=== PATIENT | male | born 1960 | race Caucasian/White ===

== ENCOUNTER 2019-01-21 11:04 | Inpatient (IN) | payer OTHER ==
--- NOTE | 2019-01-21 11:28 | PDOC ---
Attending Attestation - Resident Resident Name: Rosalia Vogt - ED Attending Attestation I have performed the following: I have examined & evaluated the patient, The case was reviewed & discussed with the resident, I agree w/resident's findings & plan, Exceptions are as noted - HPI HPI: 01/21/19 11:33 58 yo M presenting with a complaint of chest pain which began yesterday morning while doing nothing in particular Described as pressure, located in the mid axillary line and radiates to the front of the chest also on the left chest No fevers or chills Pt has had these symptoms in the past but they self resolved, he had attributed this to gas pain He became concerned because his chest pain has not resolved No recent travel No ill contacts No cough No chest wall trauma 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 ENT: Ears normal, nares patent, oropharynx clear without exudates. Moist mucous membranes. NECK: Normal range of motion, supple LUNGS: Breath sounds equal, clear to auscultation bilaterally. No wheezes, and no crackles. HEART:Regular rate and rhythm, normal S1 and S2 without murmur, rub or gallop. ABDOMEN: Soft, nontender, normoactive bowel sounds. EXTREMITIES: Normal range of motion, no edema. NEUROLOGICAL: Cranial nerves II through XII grossly intact. Normal speech. No focal neurological deficits. SKIN: Warm, Dry, normal turgor, no rashes or lesions noted. - Medical Decision Making 01/21/19 12:25 Differential includes cardiac ischemia, pe, asthma exacerbation, pneumonia, pneumothorax, pleural effusion, costochondritis, pericarditis, GERD. EKG - Twelve-lead EKG was performed and reviewed by me. There is normal sinus rhythm with a normal rate. The axis is normal. The intervals are normal. There are no ST or T wave abnormalities. Impression: Normal twelve-lead EKG 01/22/19 13:15 Laboratory Tests 01/21/19 01/21/19 12:05 12:05 WBC 7.2 Hgb 14.2 Hct 40.6 Plt Count 210 BUN 24 H Creatinine 0.9 Creatine Kinase 115 Troponin I < 0.02 01/22/19 13:15 Pt tearful, very concerned about chest pain Will place on observation Call placed to Dr Damon Heart Score/ECG Review - History History: Moderately suspicious - Electrocardiogram EKG: Normal - Age Age: 45-65 - Risk Factors Risk Factors Heart Score: Yes Hx Hypercholesterolemia, Yes Smoking History Based on the list above the patient has:: 1-2 risk factors - Troponin Troponin: </= normal limit - Score Heart Score - Total: 3
[2019-01-21 11:31] VITALS: BMI 23.3
--- NOTE | 2019-01-21 11:46 | PDOC ---
History of Present Illness - General Chief Complaint: Chest Pain Stated Complaint: CHEST PAIN, MIGRAINE Time Seen by Provider: 01/21/19 11:17 History Source: Patient Exam Limitations: No Limitations - History of Present Illness Initial Comments: 01/21/19 11:40 Patient is a 58 y/o male with a history of HLD who presents for chest pain. The pain starts in his left axilla and comes around down the front. He describes it as a pressure that is constant. The pain began last night, he went to sleep and the pain did not resolve. He has not been taking his medication for the HLD. He has a 40 pack year history and quit a year and a half ago. he used to drink 12 beers a day but also quit a year and a half ago. He has had chest pain in the past that was more substernal, but he was always told it was gas. Patient denies fevers, chills, nausea, vomiting, diaphoresis or shortness of breath. Past History - Past Medical History Allergies/Adverse Reactions: Allergies Allergy/AdvReac Type Severity Reaction Status Date / Time No Allergy Information Allergy Verified 01/21/19 12:21 Available Home Medications: Ambulatory Orders Aspirin [ASA -] 325 mg PO DAILY 01/21/19 Atorvastatin Ca [Lipitor] 20 mg PO DAILY 01/21/19 COPD: No - Suicide/Smoking/Psychosocial Hx Smoking History: Unknown if ever smoked Have you smoked in the past 12 months: No Information on smoking cessation initiated: No Hx Alcohol Use: No Drug/Substance Use Hx: No Review of Systems - Review of Systems Constitutional: No: Chills, Fever HEENTM: No: Eye Pain Respiratory: No: Cough, Shortness of Breath Cardiac (ROS): Yes: Chest Pain. No: Edema, Irregular Heart Rate ABD/GI: No: Abdominal Distended, Diarrhea, Nausea, Vomiting : No: Dysuria, Frequency Musculoskeletal: No: Gout Neurological: No: Numbness, Tingling *Physical Exam - Vital Signs Last Vital Signs Temp Pulse Resp BP Pulse Ox 97.5 F L 79 16 135/78 100 01/21/19 11:04 01/21/19 11:04 01/21/19 11:04 01/21/19 11:04 01/21/19 11:04 - Physical Exam Comments: 01/21/19 11:46 GENERAL: A&O x3, no acute distress EYES: EOMI HEART: RRR, no murmurs, rubs, or gallops LUNGS: CTAL B/L ABDOMEN: soft, non distended, non tender EXTREMITIES: no pitting edema SKIN: no ulcers or rashes noted ED Treatment Course - LABORATORY CBC & Chemistry Diagram: 01/21/19 12:05 01/21/19 12:05 Medical Decision Making - Medical Decision Making 01/21/19 11:47 EKG: no st elevations or changes, QTC 406 f/u labs, f/u CXR 01/21/19 15:08 Labs WNL, pain continuing, very anxious repeat trop @ 4 admitted to hospitalist team for tele obs *DC/Admit/Observation/Transfer Diagnosis at time of Disposition: Chest pain Qualifiers: Chest pain type: other chest pain Qualified Code(s): R07.89 - Other chest pain - Discharge Dispostion Disposition: HOME Condition at time of disposition: Improved Decision to Admit order: Yes - Referrals - Patient Instructions - Post Discharge Activity
[2019-01-21] MEDS ORDERED: ASPIRIN 81 MG CHEWABLE TABLETS PO ONE (11:53)
[2019-01-21 12:16] LABS: BASO % 0.5 % (0-2.0); EOS % 0.1 % (0-4.5); HEMATOCRIT 40.6 % (35.4-49); HEMOGLOBIN 14.2 GM/dL (11.7-16.9); LYMPH % 25.1 % (8-40); MCH 32.1 pg (25.7-33.7); MCHC 34.9 g/dl (32.0-35.9); MEAN CELL VOLUME 91.9 fl (80-96); MEAN PLT VOLUME 8.9 fl (7.5-11.1); MONO % 8.5 % (3.8-10.2); NEUT % 65.8 % (42.8-82.8); PLATELET COUNT 210 K/MM3 (134-434); RBC 4.41 M/mm3 (4.00-5.60); RDW 12.6 % (11.9-15.9); WHITE BLOOD COUNT 7.2 K/mm3 (4.0-10.0)
[2019-01-21 12:32] LABS: INR 0.96 (0.83-1.09); PROTHROMBIN TIME (PATIENT) 11.3 SEC (9.7-13.0)
[2019-01-21 12:46] LABS: ALBUMIN 4.3 g/dl (3.4-5.0); ALK PHOS 59 U/L (45-117); ANION GAP 9 MMOL/L (8-16); BILIRUBIN,TOTAL 0.2 mg/dL (0.2-1); BLOOD UREA NITROGEN 24 mg/dL (7-18); CALCIUM 8.7 mg/dL (8.5-10.1); CHLORIDE 106 mmol/L (98-107); CO2 24 mmol/L (21-32); CREATININE 0.9 mg/dL (0.55-1.3); GLUCOSE,RANDOM 98 mg/dL (74-106); MAGNESIUM 2.2 mg/dL (1.8-2.4); N-TERMINAL BNP 29.4 pg/ml (5-125); POTASSIUM 4.1 mmol/L (3.5-5.1); SGOT/AST 21 U/L (15-37); SGPT/ALT 33 U/L (13-61); SODIUM 138 mmol/L (136-145); TOT PROT 7.8 g/dl (6.4-8.2)
--- NOTE | 2019-01-21 19:55 | HP ---
Admitting History and Physical - Primary Care Physician PCP: Wilfrido Damon - Admission History of Present Illness: 58 y/o male with a history of HLD who presents for chest pain. The pain starts in his left axilla and comes around down the front. He describes it as a pressure that is constant. The pain began last night, he went to sleep and the pain did not resolve. He has not been taking his medication for the HLD. He has a 40 pack year history and quit a year and a half ago. he used to drink 12 beers a day but also quit a year and a half ago. He has had chest pain in the past that was more substernal, but he was always told it was gas. Patient denies fevers, chills, nausea, vomiting, diaphoresis or shortness of breath. - Smoking History Smoking history: Unknown if ever smoked Have you smoked in the past 12 months: No - Alcohol/Substance Use Hx Alcohol Use: No Home Medications - Allergies Allergies/Adverse Reactions: Allergies Allergy/AdvReac Type Severity Reaction Status Date / Time No Allergy Information Allergy Verified 01/21/19 12:21 Available - Home Medications Home Medications: Ambulatory Orders Aspirin [ASA -] 325 mg PO DAILY 01/21/19 Atorvastatin Ca [Lipitor] 20 mg PO DAILY 01/21/19 Physical Examination Vital Signs: Vital Signs Temperature 97.5 F L 01/21/19 11:04 Pulse Rate 74 01/21/19 19:16 Respiratory Rate 17 01/21/19 19:16 Blood Pressure 124/79 01/21/19 19:16 O2 Sat by Pulse Oximetry (%) 98 01/21/19 19:16 Constitutional: Yes: No Distress HENT: Yes: Atraumatic Neck: Yes: Supple Cardiovascular: Yes: Regular Rate and Rhythm Respiratory: Yes: CTA Bilaterally Gastrointestinal: Yes: Normal Bowel Sounds Extremities: Yes: WNL Neurological: Yes: Alert, Oriented Labs: CBC, BMP 01/21/19 12:05 01/21/19 12:05 Problem List - Problems (1) Chest pain Assessment/Plan: seems atypical prn motrin fu cardiac profile cardiology consult Code(s): R07.9 - CHEST PAIN, UNSPECIFIED Qualifiers: Chest pain type: other chest pain Qualified Code(s): R07.89 - Other chest pain; R07.8 - Other chest pain Assessment/Plan Laboratory Tests 01/21/19 01/21/19 01/21/19 12:05 12:05 12:05 WBC 7.2 RBC 4.41 Hgb 14.2 Hct 40.6 MCV 91.9 MCH 32.1 MCHC 34.9 RDW 12.6 Plt Count 210 MPV 8.9 Absolute Neuts (auto) 4.7 Neutrophils % 65.8 Lymphocytes % 25.1 Monocytes % 8.5 Eosinophils % 0.1 Basophils % 0.5 Nucleated RBC % 0 PT with INR 11.30 INR 0.96 Sodium 138 Potassium 4.1 Chloride 106 Carbon Dioxide 24 Anion Gap 9 BUN 24 H Creatinine 0.9 Creat Clearance w eGFR 86.67 Random Glucose 98 Calcium 8.7 Magnesium 2.2 Total Bilirubin 0.2 AST 21 ALT 33 Alkaline Phosphatase 59 Creatine Kinase 115 Troponin I < 0.02 B-Natriuretic Peptide 29.4 Total Protein 7.8 Albumin 4.3 01/21/19 16:00 WBC RBC Hgb Hct MCV MCH MCHC RDW Plt Count MPV Absolute Neuts (auto) Neutrophils % Lymphocytes % Monocytes % Eosinophils % Basophils % Nucleated RBC % PT with INR INR Sodium Potassium Chloride Carbon Dioxide Anion Gap BUN Creatinine Creat Clearance w eGFR Random Glucose Calcium Magnesium Total Bilirubin AST ALT Alkaline Phosphatase Creatine Kinase Troponin I < 0.02 B-Natriuretic Peptide Total Protein Albumin Active Medications Generic Name Dose Route Start Last Admin Trade Name Freq PRN Reason Stop Dose Admin Aspirin 325 mg 01/22/19 10:00 Asa - PO DAILY [facility] Atorvastatin Calcium 20 mg 01/22/19 10:00 Lipitor - PO DAILY [facility] Heparin Sodium (Porcine) 5,000 unit 01/21/19 22:00 Heparin - SQ BID [facility]
[2019-01-21] MEDS ORDERED: HEPARIN NA (PORCINE) 5,000 UNITS/ML 1ML VIAL ONE (21:42)
[2019-01-21] MEDS: HEPARIN NA (PORCINE) 5,000 UNITS/ML 1ML VIAL SQ SCH (21:51)
[2019-01-22 08:31] VITALS: PULSE 68
[2019-01-22] MEDS: HEPARIN NA (PORCINE) 5,000 UNITS/ML 1ML VIAL SQ SCH (09:32)
[2019-01-22] MEDS ORDERED: ASPIRIN 325 MG TABLET PO SCH (10:00)
--- NOTE | 2019-01-22 10:35 | CON.CARD ---
Consult Consult Specialty:: Cardiology Referred by:: Dr. Damon Reason for Consultation:: Cardiac evaluation - History of Present Illness Chief Complaint: Chest pain History of Present Illness: Patient is a 58 year old male with underlying history of hypercholesterolemia ( had not taken his medication for several weeks) who presents with pain in the left axilla and then to the mid to left sternal area described as pressure. He denies shortness of breath or palpitations. He denies paroxysmal nocturnal dyspnea or orthopnea. He denies fever or chills. He denies headache or lightheadedness. He denies nausea, vomiting, diarrhea or abdominal pain. He denies any syncope in the past. He denies cough or expectorations. - History Source History Provided By: Patient, Medical Record Limitations to Obtaining History: No Limitations - Past Medical History Cardio/Vascular: Yes: Hyperlipdemia - Past Surgical History Past Surgical History: Yes: Colostomy (reversal of colostomy) - Alcohol/Substance Use Hx Alcohol Use: Yes (stopped) History of Substance Use: reports: None - Smoking History Smoking history: Former smoker Have you smoked in the past 12 months: No Home Medications - Allergies Allergies/Adverse Reactions: Allergies Allergy/AdvReac Type Severity Reaction Status Date / Time No Allergy Information Allergy Verified 01/21/19 12:21 Available - Home Medications Home Medications: Ambulatory Orders Aspirin [ASA -] 325 mg PO DAILY 01/21/19 Atorvastatin Ca [Lipitor] 20 mg PO DAILY 01/21/19 Family Disease History - Family Disease History Family Disease History: Heart Disease: Mother (SD ()), Sister (SD) Review of Systems - Review of Systems Constitutional: denies: Chills, Fever Cardiovascular: reports: Chest Pain. denies: Palpitations, Shortness of Breath Respiratory: denies: Cough, Hemoptysis, Orthopnea, PND, SOB, SOB on Exertion Gastrointestinal: denies: Abdominal Pain, Constipation, Diarrhea, Melena, Nausea , Rectal Bleeding Genitourinary: denies: Dysuria, Hematuria Musculoskeletal: denies: Joint Pain Neurological: denies: Dizziness, Headache, Seizure, Syncope Vital Signs: Vital Signs Temperature 98.3 F 01/22/19 07:20 Pulse Rate 68 01/22/19 07:20 Respiratory Rate 18 01/22/19 07:20 Blood Pressure 115/84 01/22/19 07:20 O2 Sat by Pulse Oximetry (%) 98 01/22/19 07:20 Eyes: Yes: Conjunctiva Clear, PERRL HENT: Yes: Atraumatic Neck: Yes: Supple Respiratory: Yes: CTA Bilaterally Gastrointestinal: Yes: Normal Bowel Sounds, Soft. No: Tenderness Cardiovascular: Yes: Regular Rate and Rhythm JVD: No Carotid Bruit: No PMI: Non-Displaced Heart Sounds: Yes: S1, S2. No: Gallop Murmur: No: Systolic Murmur, Diastolic Murmur Edema: No - Other Data Labs, Other Data: CBC, BMP 01/21/19 12:05 01/21/19 12:05 INR, PTT INR 0.96 (0.83-1.09) 01/21/19 12:05 Troponin, BNP 01/21/19 01/21/19 01/22/19 12:05 16:00 00:30 Troponin I < 0.02 < 0.02 < 0.02 B-Natriuretic Peptide 29.4 Troponin, BNP 01/21/19 01/21/19 01/22/19 12:05 16:00 00:30 Troponin I < 0.02 < 0.02 < 0.02 B-Natriuretic Peptide 29.4 Normal sinus rhythm and normal ECG Imaging - Results Chest X-ray: Report Reviewed (Unremarkable) EKG: Report Reviewed Problem List - Problems (1) Hypercholesterolemia Code(s): E78.00 - PURE HYPERCHOLESTEROLEMIA, UNSPECIFIED (2) Chest pain Code(s): R07.9 - CHEST PAIN, UNSPECIFIED Qualifiers: Chest pain type: other chest pain Qualified Code(s): R07.89 - Other chest pain; R07.8 - Other chest pain Assessment/Plan 1. Atypical chest pain 2. Hypercholesterolemia 3. History of colostomy post reversal PLAN: 1. Cardiac enzymes are negative 2. Continue ASA 3. Continue Atorvastatin 4. Patient may be discharged home. Further cardiac work up can be done as outpatient including echocardiography and exercise treadmill stress testing Patient was advised to follow up in my office Thank you for the consultation opportunity Mihai Concepcion MD
--- NOTE | 2019-01-22 13:33 | DS ---
Physical Examination Vital Signs: Vital Signs Temperature 98.3 F 01/22/19 07:20 Pulse Rate 68 01/22/19 07:20 Respiratory Rate 18 01/22/19 07:20 Blood Pressure 115/84 01/22/19 07:20 O2 Sat by Pulse Oximetry (%) 98 01/22/19 07:20 Constitutional: Yes: No Distress HENT: Yes: Atraumatic Neck: Yes: Supple Cardiovascular: Yes: Regular Rate and Rhythm Respiratory: Yes: CTA Bilaterally Gastrointestinal: Yes: Normal Bowel Sounds Extremities: Yes: WNL Edema: No Neurological: Yes: Alert, Oriented Labs: CBC, BMP 01/21/19 12:05 01/21/19 12:05 Discharge Summary Reason For Visit: CHEST PAIN Current Active Problems Chest pain (Acute) Hypercholesterolemia (Acute) Condition: - Instructions Diet, Activity, Other Instructions: see dr kee [address] hi 1-2 weeks Referrals: Wilfrido Kee MD [Staff Physician] - Abraham Hi MD [Staff Physician] - Disposition: HOME - Home Medications Comprehensive Discharge Medication List: Ambulatory Orders Aspirin [ASA -] 325 mg PO DAILY 01/21/19 Atorvastatin Ca [Lipitor] 20 mg PO DAILY 01/21/19 dc home fu cardiology as out patient
[2019-01-22 14:12] VITALS: BP 134/76; TEMP 98.4
--- NOTE | 2019-01-22 14:44 | EKG ---
Test Reason : Blood Pressure : / mmHG Vent. Rate : 071 BPM Atrial Rate : 071 BPM P-R Int : 140 ms QRS Dur : 088 ms QT Int : 374 ms P-R-T Axes : 052 -09 016 degrees QTc Int : 406 ms NORMAL SINUS RHYTHM NORMAL ECG NO PREVIOUS ECGS AVAILABLE Confirmed by Rick Barbour ([id number]) on 01/22/2019 2:43:55 PM Referred By: Confirmed By:Rick Barbour
[2019-01-22] MEDS ORDERED: ATORVASTATIN CA 20 MG TABLET (FP) PO SCH (22:00)
== END 2019-01-22 14:13 | disposition home or self-care (01) | DRG 313 ==
LOC: JER 11:04 → JERBED 15:09 → OBSVTOIN 20:00
PROVIDERS: ADMIT Internal Medicine; ATTEND Internal Medicine
DX: R07.89 Other chest pain (principal); E78.5 Hyperlipidemia, unspecified
CPT/HCPCS: 36415; 71045-TC-FY; 80053; 82550; 83735; 83880; 84484; 85025; 85610; 93005; 93010; 99285-25; G0378; J1644